=== PATIENT | male | born 2000 | race Caucasian/White ===

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

== ENCOUNTER 2023-04-06 20:38 | Emergency (ER) | payer OTHER, SELFPAY ==
[2023-04-06 20:40] VITALS: BP 123/100; PULSE 85; RESP 16; TEMP 36.6; O2SAT 99; BMI 33.8
--- NOTE | 2023-04-06 21:07 | EX.ED.DYSGE1 ---
HPI History of Present Illness Chief Complaint: Allergic Reaction Detail of Chief Complaint: Possible allergic reaction Informant: patient Narrative Narrative: Patient presents emergency department concern for possible allergic reaction to his medication Latuda. Patient started the Latuda about 2 weeks ago. Patient states that he was admitted to a psychiatric unit and switch from his wrist were down to Latuda. Patient visiting from [place]. Patient complains of feeling restless and feeling like he is having a hard time speaking right and feels somewhat short of breath and feel like he is having hard time swallowing. Patient denies hallucinations. He denies homicidal thoughts or suicidal thoughts. PFSH FORMERLY [facility], 1928–1983 Medical History (Updated 04/06/23 @ 23:[address] Thomas Mclean, DO) Anxiety Bipolar 1 disorder Depression PTSD (post-traumatic stress disorder) Substance abuse in remission Home Medications lurasidone 80 mg tablet (Latuda) 80 mg PO DAILY 04/06/23 [History Last Taken Unknown] venlafaxine 75 mg capsule,extended release 24 hr (Effexor XR) 75 mg PO QHS 04/06/23 [History Last Taken Unknown] Allergy/AdvReac Type Severity Reaction Status Date / Time clonidine AdvReac HYPOTENSION Verified 04/06/23 20:42 Surgical History (Updated 04/06/23 @ 20:53 by Sarah Molina) History of foot surgery Social History (Updated 04/06/23 @ 20:53 by Sarah Molina) household members: significant other Smoking Status: Current every day smoker tobacco type: cigarettes ROS ROS ED Review of Systems ROS Unobtainable: other Constitutional Constitutional ED: Reports lethargy; Denies chills, fever(s), sweats or weight loss Eyes Eyes: Denies blurry vision, change in vision or diplopia ENT ENT ED: Denies rhinorrhea or sore throat Cardiovascular Cardiovascular: Denies chest pain, orthopnea or racing heartbeat Respiratory/Chest Respiratory/Chest: Reports dyspnea; Denies cough, dyspnea on exertion, orthopnea or sputum Gastrointestinal Gastrointestinal: Denies abdominal pain, diarrhea, nausea or vomiting Genitourinary Genitourinary ED: Denies dysuria, hematuria or urinary frequency Musculoskeletal Musculoskeletal: Denies arthralgias, back pain, myalgias or neck pain Integumentary Denies abscess, Abrasions or rash Neurologic Neurologic: Denies headache(s) or weakness Psychiatric Psychiatric: Denies anxiety, depression or suicidal thoughts Endocrine Endocrinology: Denies polydipsia, polyphagia or polyuria Hematologic/Lymphatic Hematologic/Lymphatic: Denies easy bleeding, easy bruising or lymphadenopathy Allergic/Immunologic Allergic/Immunologic ED: Denies mouth swelling, tongue swelling or urticaria EXAM Physical Exam Const Vital Signs: 04/06/23 20:40 Temperature 97.8 F Temperature Source Temporal Pulse Rate 85 Respiratory Rate 16 Blood Pressure 123/100 H Blood Pressure Mean 107 Pulse Ox 99 Oxygen Delivery Method Room Air Positive well nourished and well developed General Appearance ED: well developed and NAD HEENT Reports TM's clear and moist mucous membranes HEENT Narrative: No angioedema of the tongue or oropharynx. normocephalic and atraumatic; Negative for trauma or tenderness Tympanic Membrane ED: Yes TM's clear Eyes PERRL and EOMs intact bilaterally General Eye ED: Negative for pale conjunctiva or scleral icterus Neck no lymphadenopathy, supple and no JVD General: Negative for tenderness Chest Wall inspection of chest normal and palpation of chest normal Chest: Negative for tenderness Resp normal respiratory effort and clear to auscultation bilaterally Effort and Inspection: Negative for respiratory distress or pain with movement Auscultation: Negative for rhonchi, wheezes or diminished lung sounds Cardio regular rate, regular rhythm, S1 normal heart sound, S2 normal heart sound and no murmurs Peripheral Pulses: pulses 2+ throughout GI normal to inspection, nondistended, normoactive bowel sounds, soft to palpation, non-tender, non-distended and no masses Back/Spine no CVA tenderness and no thoracic nor lumbar tenderness Extremity normal to inspection General Extremety ED: Negative for edema General Extremity: Negative for edema Neuro oriented x3, CN's II-XII intact bilaterally, no sensory deficits noted and gait normal Sensorium / Orientation: awake, alert, oriented to person, oriented to place and oriented to time Motor Exam: strength 5/5 throughout and strength abnormal Psych mental status grossly normal Skin no rashes or lesions noted and no wounds MDM MDM MDM Narrative Medical decision making narrative: Patient clinically looks well. No signs of allergic reaction or anaphylactic reaction. We will give him 50 mg of Benadryl and observe in the department. After treatment with Benadryl patient feeling improved. Reevaluated at 2300 hrs. no evidence of anaphylaxis or neuroleptic malignant syndrome. Patient's fianc? now with him and they can call the psychiatrist tomorrow as she is concerned about him continuing to take the medication. I recommended discussing with psychiatrist before they discontinued it as they may not want to discontinue it abruptly. Patient may need further treatment with other antipsychotic to manage his symptoms. Patient discharged home in stable condition advised to return if lip or tongue swelling or trouble breathing or fever or condition should worsen anyway. Discharge Plan Triage Chief Complaint: Allergic Reaction ED Provider: Thomas Mclean Dx/Rx/DC Orders Clinical Impression: Drug side effects Instructions: ED Drug Reaction, Other Prescriptions: No Action lurasidone [Latuda] 80 mg tablet 80 mg PO DAILY Rx Instructions: must administer with food (at least 350 calories) venlafaxine [Effexor XR] 75 mg capsule,extended release 24hr 75 mg PO QHS Primary Care Provider: Care Physician,No Primary Referrals: Gaston Pinzon MD [Non-Staff] - Activity Restrictions/Additional Instructions: Call your psychiatrist regarding possibly discontinuing the Latuda and potentially starting a different medication if you continue to have significant symptoms. Return for fever, lip or tongue swelling, or if condition should worsen anyway. Disposition Disposition: Home, Self Care Discharge Date/Time: 04/06/23 23:06
[2023-04-06] MEDS: DiphenhydrAMINE 25 MG Capsule 50 MG PO (21:15)
== END 2023-04-06 23:06 | disposition home or self-care (01) ==
PROVIDERS: Emergency Provider Emergency Medicine; Visit Provider Emergency Medicine
DX: F17.210 Nicotine dependence, cigarettes, uncomplicated (principal); R06.00 Dyspnea, unspecified; R13.10 Dysphagia, unspecified; T43.595A Adverse effect of other antipsychotics and neuroleptics, initial encounter
CPT/HCPCS: 99283